=== PATIENT | male | born 1960 | race Two or more races ===

== ENCOUNTER 2018-09-25 18:27 | Emergency (ER) | payer MEDICARE, OTHER ==
[~2018-09-25] VITALS: Ht 172.7 cm; Wt 75.0 kg
[2018-09-25 20:34] VITALS: BP 125/70
== END 2018-09-25 20:40 | disposition home or self-care (01) ==
LOC: ER 18:27
DX: F15.90 Other stimulant use, unspecified, uncomplicated (principal); F17.290 Nicotine dependence, other tobacco product, uncomplicated; F41.9 Anxiety disorder, unspecified; Z95.1 Presence of aortocoronary bypass graft; W45.8XXA Other foreign body or object entering through skin, initial encounter; Y93.89 Activity, other specified; Y92.89 Other specified places as the place of occurrence of the external cause; Y99.8 Other external cause status
CPT/HCPCS: 93005; 99283